=== PATIENT | female | born 1975 | race Caucasian/White ===

== ENCOUNTER 2022-11-05 08:45 | Outpatient (CLI) | payer OTHER, SELFPAY | END 2022-11-05 08:46 | disposition home or self-care (01) | LOC: NFLDREF 11-06 19:11 | PROVIDERS: PCP Family Medicine; Referring Provider Family Medicine; Visit Provider Obstetrics & Gynecology | DX: Z13.1 Encounter for screening for diabetes mellitus (principal); Z13.6 Encounter for screening for cardiovascular disorders | CPT/HCPCS: 80061; 82947 ==

== ENCOUNTER 2023-10-01 14:55 | Outpatient (CLI) | payer OTHER, SELFPAY ==
--- NOTE | 2023-10-01 15:00 | CRLHL7_ITS ---
For Patients: As a result of the Century Cures Act, medical imaging exams and procedure reports are released immediately into your electronic medical record. You may view this report before your referring provider. If you have questions, please contact your health care provider. BILATERAL SCREENING MAMMOGRAM WITH COMPUTER-AIDED DETECTION AND TOMOSYNTHESIS TECHNIQUE: CC and MLO views were obtained. These mammographic images have been obtained using full-field digital technique. These mammographic images were interpreted with the benefit of computer-aided detection. Breast Tomosynthesis was used in this interpretation. COMPARISON FILM: 12/23/20, 12/12/20, 05/16/19. FINDINGS: There are scattered areas of fibroglandular density. IMPRESSION: There is no radiographic evidence for malignancy. ASSESSMENT: BI-RADS Category 1: Negative RECOMMENDATION: Routine screening mammogram in 1 year. A lay language report of this examination will be provided to the patient. Ambrocio Mcclendon M.D. Diagnostic Radiologist [email or web address] SP/Dictated by: Ambrocio Mcclendon MD @ 10/04/2023 8:45:00 AM (Electronically Signed)
== END 2023-10-01 14:56 | disposition home or self-care (01) ==
LOC: MAMMO 14:55
PROVIDERS: PCP Family Medicine; Visit Provider Obstetrics & Gynecology
DX: Z12.31 Encounter for screening mammogram for malignant neoplasm of breast (principal)
CPT/HCPCS: 77063; 77067

== ENCOUNTER 2024-11-28 09:30 | Outpatient (CLI) | payer OTHER, SELFPAY | END 2024-11-28 09:31 | disposition home or self-care (01) | LOC: NFLDREF 11-30 14:47 | PROVIDERS: PCP Family Medicine; Referring Provider Family Medicine; Visit Provider Family Medicine | DX: E78.5 Hyperlipidemia, unspecified (principal); R53.83 Other fatigue; R74.01 Elevation of levels of liver transaminase levels; R79.89 Other specified abnormal findings of blood chemistry; Z13.6 Encounter for screening for cardiovascular disorders; Z78.9 Other specified health status | CPT/HCPCS: 80053; 80061; 84439; 84443 ==

== ENCOUNTER 2025-01-02 13:58 | Outpatient (CLI) | payer OTHER, SELFPAY ==
--- NOTE | 2025-01-02 13:40 | CRLHL7_ITS ---
For Patients: As a result of the Century Cures Act, medical imaging exams and procedure reports are released immediately into your electronic medical record. You may view this report before your referring provider. If you have questions, please contact your health care provider. BILATERAL DIGITAL SCREENING MAMMOGRAM WITH COMPUTER-AIDED DETECTION AND TOMOSYNTHESIS CLINICAL HISTORY: : Routine screening exam. COMPARISON: 10/01/2023, 12/23/2020, 12/12/2020 TECHNIQUE: Digital mammogram in CC and MLO projections including computer-aided detection (CAD). Tomosynthesis was used in this interpretation. BREAST COMPOSITION: The breasts are heterogeneously dense, which may obscure small masses. FINDINGS: RIGHT Breast: No suspicious findings LEFT Breast: Focal asymmetric density within the lateral left breast 8 cm from the nipple. IMPRESSION: LEFT breast asymmetry/mass. RECOMMENDATIONS: Additional mammographic views of the LEFT breast including 3D spot-compression CC/MLO. LEFT breast ultrasound may also be required. [facility] will contact the patient. A lay language report of this examination will be provided to the patient. BI-RADS Category 0: Incomplete: Need Additional Imaging Evaluation Dictated by Ambrocio Mcclendon MD @ 01/03/2025 9:27:02 AM (Electronically Signed)
== END 2025-01-02 13:59 | disposition home or self-care (01) ==
PROVIDERS: PCP Family Medicine; Visit Provider Obstetrics & Gynecology
DX: Z12.31 Encounter for screening mammogram for malignant neoplasm of breast (principal); N63.20 Unspecified lump in the left breast, unspecified quadrant; R92.333 Mammographic heterogeneous density, bilateral breasts
CPT/HCPCS: 77063; 77067

== ENCOUNTER 2025-01-10 09:50 | Outpatient (CLI) | payer OTHER, SELFPAY ==
--- NOTE | 2025-01-10 09:45 | CRLHL7_ITS ---
For Patients: As a result of the Cures Act, medical imaging exams and procedure reports are released immediately into your electronic medical record. You may view this report before your referring provider. If you have questions, please contact your health care provider. LEFT DIAGNOSTIC MAMMOGRAM WITH COMPUTER-AIDED DETECTION AND TOMOSYNTHESIS LEFT BREAST ULTRASOUND CLINICAL HISTORY: LEFT breast mass/asymmetry. COMPARISON: 01/02/2025, 10/01/2023. TECHNIQUE: Digital LEFT mammogram in two projections. Computer-aided detection and tomosynthesis were used. Real-time ultrasound imaging of LEFT breast with imaging documentation. Scanning was performed by both the technologist and the radiologist. BREAST COMPOSITION: The breasts are heterogeneously dense, which may obscure small masses. FINDINGS: 3D spot compression CC/MLO LEFT breast mammogram images submitted. Decreased conspicuity of previously noted asymmetric density. No architectural distortion or suspicious calcifications. Targeted LEFT breast ultrasound performed. At 2-3 o`clock, 5-8 cm from the nipple, normal fibroglandular tissue is present. Small incidental cysts are noted. No suspicious findings. IMPRESSION: No evidence of malignancy. RECOMMENDATIONS: Routine screening mammography. A lay language report of this examination will be provided to the patient. BI-RADS Category 2: Benign Dictated by Ambrocio Mcclendon MD @ 01/10/2025 3:58:20 PM /sp SP/Dictated by: Ambrocio Mcclendon MD @ 01/10/2025 3:58:00 PM (Electronically Signed)
--- NOTE | 2025-01-10 10:15 | CRLHL7_ITS ---
For Patients: As a result of the Century Cures Act, medical imaging exams and procedure reports are released immediately into your electronic medical record. You may view this report before your referring provider. If you have questions, please contact your health care provider. PLEASE SEE LEFT BREAST DIAGNOSTIC MAMMOGRAM PERFORMED SAME DAY. CRL/sp SP/Dictated by: Ambrocio Mcclendon MD @ 01/10/2025 3:58:00 PM (Electronically Signed)
== END 2025-01-10 09:51 | disposition home or self-care (01) ==
LOC: MAMMO 09:51
PROVIDERS: PCP Family Medicine; Visit Provider Obstetrics & Gynecology
DX: N63.20 Unspecified lump in the left breast, unspecified quadrant (principal); R92.8 Other abnormal and inconclusive findings on diagnostic imaging of breast; R92.333 Mammographic heterogeneous density, bilateral breasts
CPT/HCPCS: 76642; 77065; G0279

== ENCOUNTER 2025-02-13 11:14 | Outpatient (CLI) | payer OTHER, SELFPAY ==
--- NOTE | 2025-02-13 12:51 | P.ANES_ITS ---
Anesthesia Charges Start Date/Time Anesthesia Start Date: 02/13/25 Anesthesia Start Time: 11:52 Stop Date/Time Anesthesia Stop Date: 02/13/25 Anesthesia Stop Time: 12:50 Coding CPT Codes CPT Codes: KULWANT LWR INTST NDSC NOS - 26224 ([id number]) P2 - PATIENT W/MILD SYST DISEASE, QK - HEAD OF BUSINESS DEVELOPMENT 2-4 CNCRNT ANES PROC, QX - SCHOOL PSYCHOLOGIST ASSISTANT SVC W/ MD MED DIRECTION
--- NOTE | 2025-02-13 12:51 | W.ANESCHARGE ---
Anesthesia Charges Start Date/Time Anesthesia Start Date: 02/13/25 Anesthesia Start Time: 11:52 Stop Date/Time Anesthesia Stop Date: 02/13/25 Anesthesia Stop Time: 12:50 Coding CPT Codes CPT Codes: KULWANT LWR INTST NDSC NOS - 98597 ([id number]) P2 - PATIENT W/MILD SYST DISEASE, QK - FLOOR WAXER 2-4 CNCRNT ANES PROC, QX - BUDGET SPECIALIST SVC W/ MD MED DIRECTION
--- NOTE | 2025-02-13 13:56 | P.ANES_ITS ---
Anesthesia Charges Start Date/Time Anesthesia Start Date: 02/13/25 Anesthesia Start Time: 11:52 Stop Date/Time Anesthesia Stop Date: 02/13/25 Anesthesia Stop Time: 12:50 Coding CPT Codes CPT Codes: KULWANT LWR INTST NDSC NOS - [id number] ([id number]) P2 - PATIENT W/MILD SYST DISEASE, QK - TELEPHONE MECHANIC 2-4 CNCRNT ANES PROC, QX - DIRECTOR DIGITAL SVC W/ MD MED DIRECTION
--- NOTE | 2025-02-13 13:56 | W.ANESCHARGE ---
Anesthesia Charges Start Date/Time Anesthesia Start Date: 02/13/25 Anesthesia Start Time: 11:52 Stop Date/Time Anesthesia Stop Date: 02/13/25 Anesthesia Stop Time: 12:50 Coding CPT Codes CPT Codes: KUWLANT LWR INTST NDSC NOS - [id number] ([id number]) P2 - PATIENT W/MILD SYST DISEASE, QK - CURB SUPERVISOR 2-4 CNCRNT ANES PROC, QX - HOME THEATER SPECIALIST SVC W/ MD MED DIRECTION
== END 2025-02-13 11:15 | disposition home or self-care (01) ==
PROVIDERS: PCP Family Medicine; Visit Provider Internal Medicine
DX: Z12.11 Encounter for screening for malignant neoplasm of colon (principal); D12.0 Benign neoplasm of cecum; D49.0 Neoplasm of unspecified behavior of digestive system; K57.30 Diverticulosis of large intestine without perforation or abscess without bleeding
CPT/HCPCS: 00811; 00812; 45380; 45381; 45385; 88305; 88341; 88342; J2704

== ENCOUNTER 2025-02-19 14:12 | Outpatient (CLI) | payer OTHER, SELFPAY | END 2025-02-19 14:13 | disposition home or self-care (01) | LOC: NFLDREF 02-22 19:38 | PROVIDERS: PCP Family Medicine; Referring Provider Family Medicine; Visit Provider Family Medicine | DX: R79.89 Other specified abnormal findings of blood chemistry (principal); R74.01 Elevation of levels of liver transaminase levels | CPT/HCPCS: 80053; 82378; 84443 ==

== ENCOUNTER 2025-02-23 09:32 | Outpatient (CLI) | payer OTHER, SELFPAY ==
--- NOTE | 2025-02-23 10:00 | CRLHL7_ITS ---
For Patients: As a result of the Century Cures Act, medical imaging exams and procedure reports are released immediately into your electronic medical record. You may view this report before your referring provider. If you have questions, please contact your health care provider. Indication: MALIGNANT NEOPLASM OF RECTOSIGMOID JUNCTION Technique: CT Chest/Abd/Pelvis W/74CC [id number] intravenous contrast Please note that all CT scans at this facility use dose modulation, iterative reconstruction, and/or weight-based dosing when appropriate to reduce radiation dose to as low as reasonably achievable. Comparison: None Findings: In the chest, there is a right middle lobe nodule which measures 6.5 millimeters, 4/54. Mild dependent atelectasis is present in both lower lobes. No pleural effusion or pulmonary edema. No infiltrate. Normal visualized thyroid. No mediastinal, hilar or axillary adenopathy. Incidental density adjacent to the right humeral head consistent with mild rotator cuff calcific tendinitis. Scattered sclerotic foci in the sternum are present and should represent normal bone islands. In the abdomen, there are postoperative changes of cholecystectomy. No biliary obstruction. Small low-density cysts are present within the left hepatic lobe which measure up to 8 millimeters. The spleen is normal. Normal adrenal glands. Kidneys are unremarkable. Normal pancreas. Incidental splenule. In the pelvis, the bladder is unremarkable. Simple right ovarian cyst measures 3.9 cm. No pelvic or inguinal adenopathy. Normal appendix. No small bowel obstruction. Bone island within the right posterior acetabulum. Additional bone island left femoral head. Mild rightward curvature lumbar spine. Degenerative changes at both sacroiliac joints and at L5-S1. Slight degenerative anterolisthesis of L4 on L5. Impression: 6.5 millimeter right middle lobe pulmonary nodule. Intrahepatic cysts. No intrathoracic, intra-abdominal or intrapelvic adenopathy. 3.9 cm simple right ovarian cyst. Please note that all CT scans at this facility use dose modulation, iterative reconstruction, and/or weight-based dosing when appropriate to reduce radiation dose to as low as reasonably achievable. Dictated by Ambrocio Mcclendon MD @ 02/23/2025 11:42:41 AM (Electronically Signed)
== END 2025-02-23 09:33 | disposition home or self-care (01) ==
LOC: CT 09:33
PROVIDERS: PCP Family Medicine; Visit Provider Internal Medicine
DX: C19 Malignant neoplasm of rectosigmoid junction (principal); R91.8 Other nonspecific abnormal finding of lung field; K76.89 Other specified diseases of liver; N83.291 Other ovarian cyst, right side
CPT/HCPCS: 71260; 74177; Q9967

== ENCOUNTER 2025-03-09 14:53 | Outpatient (CLI) | payer OTHER, SELFPAY | END 2025-03-09 14:54 | disposition home or self-care (01) | LOC: NFLDREF 14:56 | PROVIDERS: PCP Family Medicine; Visit Provider Family Medicine | DX: C19 Malignant neoplasm of rectosigmoid junction (principal); E87.6 Hypokalemia | CPT/HCPCS: 80048 ==